=== PATIENT | male | born 1985 | race Caucasian/White ===

== ENCOUNTER 2020-01-07 00:10 | Emergency (ER) | payer SELFPAY ==
[~2020-01-07] VITALS: Ht 188 cm; Wt 84.1 kg
[2020-01-07 00:18] VITALS: Ht 188 cm; Wt 84.1 kg
[2020-01-07] MEDS ORDERED: HYDROCODON-ACE1 EAC7 PO (01:50)
[2020-01-07 02:00] VITALS: BP 111/56
== END 2020-01-07 02:00 | disposition home or self-care (01) ==
LOC: D.ER 00:10
DX: S52.92XA Unspecified fracture of left forearm, initial encounter for closed fracture (principal); W19.XXXA Unspecified fall, initial encounter; Y93.9 Activity, unspecified; Y92.9 Unspecified place or not applicable

== ENCOUNTER 2020-02-02 08:35 | Day surgery (SDC) | payer MEDICAID ==
[~2020-02-02] VITALS: Ht 188 cm; Wt 76.4 kg
[~2020-02-02 08:35] MED LIST: HYDROCODON-ACE1 EAC7 PO
[2020-02-02] MEDS ORDERED: NAPROXEN250 MG PO (09:31)
[2020-02-02 09:50] VITALS: Ht 188 cm; Wt 76.4 kg
[2020-02-02] MEDS ORDERED: HYDROCODON-ACE1 EA10 PO (12:22)
--- NOTE | 2020-02-02 13:08 | NUR ---
PT REMAINS ASLEEP AND WILL NOT RESPOND TO STIMULUS. VSS, CTM
--- NOTE | 2020-02-02 13:19 | NUR ---
PT AWAKENS TO STRONG STIMULUS, DENIES PAIN, VSS
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
== END 2020-02-02 15:05 | disposition home or self-care (01) ==
LOC: D.OPS 08:35
PROVIDERS: ATTEND Orthopaedic Surgery
DX: S52.502A Unspecified fracture of the lower end of left radius, initial encounter for closed fracture (principal); R20.0 Anesthesia of skin; M25.532 Pain in left wrist; S52.615A Nondisplaced fracture of left ulna styloid process, initial encounter for closed fracture